=== PATIENT | male | born 1940 | race Caucasian/White ===

== ENCOUNTER → 2020-10-20 | Outpatient (CLI) | payer MEDICARE ==
[~2020-10-20] MED LIST: AMLO-150 PO; ASPI81TA45 PO; ATEN25TA PO; ATEN50TA41 PO; ATOR40TA78 PO; CHOL10002 PO; CHOL10003 PO; EZET10TA70 PO; FOLI-17 PO; FURO-93 PO; HYDR25TA6 PO; LOSA100T14 PO; LUTE20CA2 PO; MULT1TAB78 PO; POTA10TA17 PO; POTASSIUM PO; UBID100C24 PO; [UNRECOGNIZED DRUG - CODE] PO
[2020-10-20 13:30] LABS: BASOPHILS % (AUTO) 1 % (0-1); EOSINOPHILS % (AUTO) 7 % (1-7); LYMPHOCYTES % (AUTO) 25 % (22-44); MEAN CORPUSCULAR HEMOGLOBIN 29.8 pg (27.5-34.5); MEAN CORPUSCULAR HGB CONC 34.5 g/dL (33.2-36.2); MEAN PLATELET VOLUME 7.5 fL (7.4-10.4); MONOCYTES % (AUTO) 5 % (2-9); NEUTROPHILS % (AUTO) 62 % (42-75); PLATELET COUNT 240 x10^3/uL (130-400); RED BLOOD COUNT 4.96 x10^6/uL (4.38-5.82); RED CELL DISTRIBUTION WIDTH 14.6 % (9.4-14.8)
[2020-10-20 13:37] LABS: MD NO
[2020-10-20 13:44] LABS: ALANINE AMINOTRANSFERASE 19 U/L (12-78); ALBUMIN 3.6 g/dL (3.4-5.0); ANION GAP 5 mmol/L (5-15); CALCIUM 8.9 mg/dL (8.5-10.1); CHLORIDE 108 mmol/L (98-107); CREATININE 1.37 mg/dL (0.7-1.3)
[2020-10-20 13:46] LABS: ALKALINE PHOSPHATASE 108 U/L (45-117); BILIRUBIN,TOTAL 0.5 mg/dL (0.2-1.0); TOTAL PROTEIN 7.6 g/dL (6.4-8.2)
== END | disposition home or self-care (01) ==
LOC: STAR 12:13
PROVIDERS: ATTEND Surgery
DX: Z01.818 Encounter for other preprocedural examination (principal)
CPT/HCPCS: 36415; 80053; 85025

== ENCOUNTER 2020-10-26 13:02 | Day surgery (SDC) | payer MEDICARE ==
[~2020-10-26] VITALS: Ht 182.9 cm; Wt 102.6 kg
[2020-10-26 13:51] VITALS: BP 180/77
[2020-10-26] MEDS ORDERED: D5%-0.45% NACL 1,000 ML IV SCH (14:00)
[2020-10-26] MEDS ORDERED: HEPARIN 1,000 UNITS/ML, 10ML ONE (15:01)
[2020-10-26] MEDS ORDERED: FENTANYL PF 100 MCG/2ML ONE (15:01)
[2020-10-26] MEDS ORDERED: MIDAZOLAM 1 MG/ML, 5ML ONE (15:01)
[2020-10-26] MEDS ORDERED: FLUMAZENIL 0.1 MG/1 ML, 5ML ONE (15:01)
[2020-10-26] MEDS ORDERED: PROTAMINE SULFATE 10 MG/ML, 25ML ONE (15:02)
[2020-10-26] MEDS ORDERED: NALOXONE 1 MG/ML, 2ML ONE (15:02)
[2020-10-26] MEDS ORDERED: LIDOCAINE 1%, 10ML ONE (15:15)
[2020-10-26] MEDS ORDERED: hydrALAzine 20 MG/ML, 1ML ONE (15:32)
[2020-10-26] MEDS ORDERED: SODIUM CHLORIDE FLUSH 10ML SYR IVF SCH ×2 (21:00)
== END 2020-10-26 19:10 | disposition home or self-care (01) ==
LOC: OUT 13:02
PROVIDERS: ATTEND Surgery
DX: I70.1 Atherosclerosis of renal artery (principal); I77.1 Stricture of artery; I70.0 Atherosclerosis of aorta; I25.10 Atherosclerotic heart disease of native coronary artery without angina pectoris; I65.23 Occlusion and stenosis of bilateral carotid arteries; I10 Essential (primary) hypertension; E78.5 Hyperlipidemia, unspecified; Z79.82 Long term (current) use of aspirin; Z79.899 Other long term (current) drug therapy; Z87.891 Personal history of nicotine dependence; Z88.0 Allergy status to penicillin; Z88.2 Allergy status to sulfonamides; Z98.890 Other specified postprocedural states; Z99.81 Dependence on supplemental oxygen; Z82.49 Family history of ischemic heart disease and other diseases of the circulatory system
CPT/HCPCS: 37246; 99156; 99157; C1725; C1751; C1769; C1894; J0360; J1644; J2250; J3010; 36251; J2720; J2310